=== PATIENT | female | born 1990 | race African-American/Black ===

== ENCOUNTER 2020-09-25 13:31 | Emergency (ER) | payer OTHER ==
[2020-09-25 13:55] VITALS: BP 111/70; PULSE 100; BMI 34.9
[2020-09-25] MEDS ORDERED: KETOROLAC TROMETHAMINE 30 MG/1 ML VIAL IM ONE (14:45)
[2020-09-25] MEDS ORDERED: KETOROLAC TROMETHAMINE 30 MG/1 ML VIAL ONE (14:52)
== END 2020-09-25 17:09 | disposition home or self-care (01) ==
LOC: JERFT 13:31
PROC: 3E0233Z Introduction of Anti-inflammatory into Muscle, Percutaneous Approach (ICD-10-PCS; principal; 2020-09-25)
DX: M25.562 Pain in left knee (principal)
CPT/HCPCS: 93971-TC; 99284-25

== ENCOUNTER 2023-01-02 20:14 | Emergency (ER) | payer OTHER ==
[2023-01-02 20:34] VITALS: BP 132/71; PULSE 60; RESP 18; TEMP 98.5; BMI 36.2
[2023-01-02] MEDS ORDERED: diazePAM 5 MG TABLET PO ONE (22:00)
[2023-01-02] MEDS ORDERED: KETOROLAC TROMETHAMINE 30 MG/1 ML VIAL IM ONE (22:00)
[2023-01-02] MEDS ORDERED: diazePAM 5 MG TABLET ONE (22:02)
[2023-01-02] MEDS ORDERED: KETOROLAC TROMETHAMINE 30 MG/1 ML VIAL ONE (22:02)
== END 2023-01-03 00:01 | disposition home or self-care (01) ==
LOC: JERFT 20:14
PROC: 3E023GC Introduction of Other Therapeutic Substance into Muscle, Percutaneous Approach (ICD-10-PCS; principal; 2023-01-02)
DX: M54.2 Cervicalgia (principal); M54.50 Low back pain, unspecified; M25.511 Pain in right shoulder; V49.9XXA Car occupant (driver) (passenger) injured in unspecified traffic accident, initial encounter
CPT/HCPCS: 73030-TC-RT-FY; 99284-25